=== PATIENT | female | born 1995 | race Caucasian/White ===

== ENCOUNTER 2021-06-20 20:39 | Emergency (ER) | payer OTHER, SELFPAY ==
[2021-06-20] VITALS (9 sets, daily range): BP systolic 97–123; BP diastolic 66–75; PULSE 74–93; RESP 12–22; TEMP 36.9; O2SAT 96–100; BMI 23.1
[2021-06-20 21:44] LABS: Hemoglobin 12.7 g/dL (12.0-16.0); Mean Corpuscular HGB Conc 33.4 % (30-36); Mean Corpuscular Hemoglobin 31.8 PG (26-34); Platelet Count 376 X10^3/uL (150-400); Red Cell Distribution Width 12.1 % (11.6-14.8); White Blood Cell Count 13.7 X10^3/uL (4.5-11.0)
[2021-06-20 21:47] LABS: Add Manual Diff / Slide Review YES
[2021-06-20 21:50] LABS: Alanine Aminotransferase 14 IU/L (<35); Albumin 4.2 g/dL (3.5-5.0); Albumin Globulin Ratio 1.3 (1.0-2.8); Alkaline Phosphatase 60 U/L (38-126); Aspartate Aminotransferase 18 IU/L (14-36); BUN Creatinine Ratio 13.4 (6-22); Bilirubin Total 0.6 mg/dL (0.2-1.3); Blood Urea Nitrogen 11 mg/dL (7-17); Calcium 9.7 mg/dL (8.4-10.2); Carbon Dioxide 30 mmol/L (22-32); Chloride 107 mmol/L (98-107); Creatine Kinase 31 U/L (30-135); Estimated Glomerular Filt Rate > 60.0 mL/min (>60); Globulin 3.3 g/dL (1.7-4.1); Glucose 102 mg/dL (70-100); HEMOLYSIS < 15 (0-50); Magnesium 2.2 mg/dL (1.6-2.3); Potassium 4.3 mmol/L (3.4-5.1); Sodium 143 mmol/L (137-145); Total Protein 7.5 g/dL (6.3-8.2)
[2021-06-20 22:00] LABS: Troponin I < 0.012 ng/mL (0.01-0.034)
[2021-06-20 22:21] LABS: Bacteria Urine Many (>30); RBC Urine 1-5/HPF (0-5/HPF); Squamous Epithelial Cell Urine >30 /HPF (0-5/HPF); WBC Urine 5-10/HPF (0-5/HPF)
[2021-06-20 22:22] LABS: Culture Indicated Urine Cult Not Indicated
[2021-06-20 22:35] LABS: Neutrophils Absolute Manual 7261 /uL (3000-5900); Total Cells Counted 100
[2021-06-20 22:36] LABS: RBC Morphology Normal Morphology
[2021-06-21] VITALS: PULSE 70; RESP 18; O2SAT 95
[2021-06-21 00:30] VITALS: PULSE 65; RESP 16; O2SAT 97
--- NOTE | 2021-06-21 00:59 | ED.ARRPALP ---
HPI - Arrhythmia/Palpitations General Chief Complaint: Arrhythmia/Palpitations Stated Complaint: chest palpitations all day Time Seen by Provider: 06/20/21 21:52 Source: patient Mode of arrival: Ambulatory Limitations: no limitations History of Present Illness HPI narrative: 26-year-old woman with no significant medical history presents with increasing palpitations today. She denies any excessive caffeine, energy drinks, stimulants or [id number] medications. She states she has been eating and drinking normally has not had excessive alcohol use and is not regularly using marijuana. When she gets palpitations she notes a fluttery feeling in her throat but no actual pain, diaphoresis or shortness of breath. She describes no recent headaches, fevers, cough, abdominal pain, diarrhea or constipation. Related Data Previous Rx's Medication Instructions Recorded propranolol 20 mg tablet 20 mg PO BID PRN #20 tab 06/21/21 Allergies Allergy/AdvReac Type Severity Reaction Status Date / Time No Known Drug Allergies Allergy Verified 06/20/21 20:56 Review of Systems Review of Systems Narrative: Pertinent positive and negative findings as per HPI Remainder of review of systems is otherwise unremarkable for Constitutional: Fevers, chills, weakness ENT: No sore throat, neck pain, ear pain CV: Chest pain, palpitations, Respiratory: Cough, wheeze, dyspnea GI: Nausea, vomiting, diarrhea, : Dysuria, hematuria, Patient History Social History Smoking Status: Current every day smoker Smoking Status: Current every day smoker tobacco type: vaping alcohol intake frequency: a few times a week Substance Use Type: does not use Exam Narrative Exam Narrative: General: Healthy appearing, in no acute distress. Able to give a complete and coherent history. Well-nourished well-developed HEENT: Moist mucous membranes, normal sclera with reactive pupils, Neck: No JVD, supple Respiratory: Lungs are clear to auscultation, no wheezing no rales no rhonchi. Full and symmetrical air movement Cardiac: Regular rate and rhythm no murmurs no bruits Abdomen: Soft, nontender, good bowel tones, no flank pain Skin: Warm and dry, no rashes Neurologic: Grossly neurologically intact with no obvious asymmetries or abnormalities Extremities: No trauma, well perfused Psych: Cooperative, appropriate insight and affect Initial Vital Signs Initial Vital Signs: Vital Signs Pulse Rate 93 H 06/20/21 20:55 Pulse Oximetry 100 06/20/21 20:55 Course Orders Ordered: ED Orders 06/20/21 21:17 EKG-12 Lead Stat 06/20/21 21:30 Complete Blood Count AUTO DIFF Stat Comprehensive Metabolic Panel Stat Magnesium Stat TSH w/ Reflex to FT4 Stat Troponin & CK Cardiac Panel Stat 06/20/21 21:45 Urine Microscopic Stat Discontinued Medications Propranolol HCl (Propranolol 10 Mg Tablet) 20 mg PO NOW ONE Stop: 06/21/21 01:10 Vital Signs Vital signs: Vital Signs - 8 hr 06/20/21 20:55 06/20/21 20:58 06/20/21 21:00 Temperature 98.5 F Pulse Rate 93 H 89 89 Respiratory Rate 18 Blood Pressure 123/75 Pulse Oximetry 100 100 96 06/20/21 21:30 06/20/21 21:33 06/20/21 22:00 Temperature Pulse Rate 80 80 81 Respiratory Rate 12 16 Blood Pressure 97/66 Pulse Oximetry 99 100 97 06/20/21 22:30 Temperature Pulse Rate 76 Respiratory Rate 18 Blood Pressure Pulse Oximetry 98 MDM - Arrhythmia/Palpitations Lab Data Result diagrams: 06/20/21 21:30 06/20/21 21:30 Labs: Lab Results 06/20/21 06/20/21 06/20/21 Range/Units 21:30 21:30 21:30 WBC 13.7 H (4.5-11.0) X10^3/uL RBC 4.00 (4.0-5.2) X10^6/uL Hgb 12.7 (12.0-16.0) g/dL Hct 38.0 (36-46) % MCV 95.0 (80-100) fL MCH 31.8 (26-34) PG MCHC 33.4 (30-36) % RDW 12.1 (11.6-14.8) % Plt Count 376 (150-400) X10^3/uL Neut % (Auto) Not Reportable Lymph % (Auto) Not Reportable [place] % (Auto) Not Reportable Eos % (Auto) Not Reportable Baso % (Auto) Not Reportable Lymph # (Auto) Not Reportable [place] # (Auto) Not Reportable Baso # (Auto) Not Reportable Total Counted 100 Seg Neutrophils % 51.0 (38-70) % Band Neutrophils % 2.0 L (3-7) % Lymphocytes % (Manual) 42.0 (25-45) % Monocytes % (Manual) 4.0 (2-11) % Eosinophils % (Manual) 1.0 L (2-4) % Neutrophils # (Manual) 7261 H (2241-0302) /uL RBC Morphology Normal morphology Sodium 143 (137-145) mmol/L Potassium 4.3 (3.4-5.1) mmol/L Chloride 107 (98-107) mmol/L Carbon Dioxide 30 (22-32) mmol/L BUN 11 (7-17) mg/dL Creatinine 0.82 (0.52-1.04) mg/dL Estimated GFR > 60.0 (>60) mL/min BUN/Creatinine Ratio 13.4 (6-22) Glucose 102 H (70-100) mg/dL Calcium 9.7 (8.4-10.2) mg/dL Magnesium 2.2 (1.6-2.3) mg/dL Total Bilirubin 0.6 (0.2-1.3) mg/dL AST 18 (14-36) IU/L ALT 14 (<35) IU/L Alkaline Phosphatase 60 (38-126) U/L Total Creatine Kinase 31 (30-135) U/L CK-MB (CK-2) TNP CK-MB (CK-2) Rel Index TNP Troponin I < 0.012 (0.01-0.034) ng/mL Total Protein 7.5 (6.3-8.2) g/dL Albumin 4.2 (3.5-5.0) g/dL Globulin 3.3 (1.7-4.1) g/dL Albumin/Globulin Ratio 1.3 (1.0-2.8) TSH 2.30 (0.47-4.68) uIU/mL Urine RBC (0-5/HPF) Urine WBC (0-5/HPF) Ur Squamous Epith Cells (0-5/HPF) Urine Bacteria (None) Ur Culture Indicated? Micro UA Comment 06/20/21 Range/Units 21:45 WBC (4.5-11.0) X10^3/uL RBC (4.0-5.2) X10^6/uL Hgb (12.0-16.0) g/dL Hct (36-46) % MCV (80-100) fL MCH (26-34) PG MCHC (30-36) % RDW (11.6-14.8) % Plt Count (150-400) X10^3/uL Neut % (Auto) Lymph % (Auto) [place] % (Auto) Eos % (Auto) Baso % (Auto) Lymph # (Auto) [place] # (Auto) Baso # (Auto) Total Counted Seg Neutrophils % (38-70) % Band Neutrophils % (3-7) % Lymphocytes % (Manual) (25-45) % Monocytes % (Manual) (2-11) % Eosinophils % (Manual) (2-4) % Neutrophils # (Manual) (7809-9208) /uL RBC Morphology Sodium (137-145) mmol/L Potassium (3.4-5.1) mmol/L Chloride (98-107) mmol/L Carbon Dioxide (22-32) mmol/L BUN (7-17) mg/dL Creatinine (0.52-1.04) mg/dL Estimated GFR (>60) mL/min BUN/Creatinine Ratio (6-22) Glucose (70-100) mg/dL Calcium (8.4-10.2) mg/dL Magnesium (1.6-2.3) mg/dL Total Bilirubin (0.2-1.3) mg/dL AST (14-36) IU/L ALT (<35) IU/L Alkaline Phosphatase (38-126) U/L Total Creatine Kinase (30-135) U/L CK-MB (CK-2) CK-MB (CK-2) Rel Index Troponin I (0.01-0.034) ng/mL Total Protein (6.3-8.2) g/dL Albumin (3.5-5.0) g/dL Globulin (1.7-4.1) g/dL Albumin/Globulin Ratio (1.0-2.8) TSH (0.47-4.68) uIU/mL Urine RBC 1-5/hpf (0-5/HPF) Urine WBC 5-10/hpf H (0-5/HPF) Ur Squamous Epith Cells >30 /hpf H (0-5/HPF) Urine Bacteria Many (>30) H (None) Ur Culture Indicated? Cult not indicated Micro UA Comment * Point of Care Testing Test Results Negative Urine Dip Bedside Urine Glucose Negative Bedside Urine Bilirubin - Negative Bedside Urine Ketone - Negative Urine Specific [place] 1.030 Bedside Urine Occult Blood + Bedside Urine pH 6.0 Bedside Urine Protein - Negative Bedside Urine Urobilinogen - Negative Bedside Urine Nitrite - Negative Bedside Urine Leukocytes - Negative Esterase MDM Narrative Medical decision making narrative: Otherwise healthy 26-year-old woman with palpitations. Telemetry reveals PACs sometimes as frequently as bigeminy with PACs. Remainder of exam and workup is otherwise unremarkable. No evidence of acute coronary syndrome, electrolyte abnormalities or thyroid abnormalities. She was given a dose of 20 mg of oral propranolol with resolution of symptoms and would like to try this on a as needed basis as an outpatient. She is safe for home discharge Discharge Plan Departure Patient Disposition: Home Clinical Impression: PAC (premature atrial contraction) Instructions: Premature Ventricular Beats Activity Restrictions/Additional Instructions: Thank you for coming in today You are having an occasional early beat. We called these premature atrial contractions. These cause the ?weird fluttery? feeling in her chest and seem ?wrong?. They are not a sign of anything bad or scary. They are not a precursor to a heart attack, your heart is not going to stop, you are not going to go into an irregular rhythm that is going to cause any life-threatening problems. You can use propranolol 20 mg up to 2 times a day if needed if you are having so many irregular beats that you are having trouble ignoring them. Your workup today was very reassuring, your electrolytes, kidney function, liver function, thyroid and EKG were all nice and normal. Please follow-up with your primary care doctor I hope you feel better Prescriptions: New propranolol 20 mg tablet 20 mg PO BID PRN (Reason: palpitationsl) Qty: 20 RF: 0
[2021-06-21 01:00] VITALS: PULSE 73; O2SAT 96
[2021-06-21 01:40] VITALS: BP 95/59; PULSE 81; RESP 15; TEMP 36.6; O2SAT 100
[2021-06-21] MEDS: PROPRANOLOL 10 MG TABLET 20 MG PO (01:51)
== END 2021-06-21 01:55 | disposition home or self-care (01) ==
PROVIDERS: Emergency Provider Emergency Medicine
DX: I49.1 Atrial premature depolarization (principal)
CPT/HCPCS: 36415; 80053; 81003; 81015; 81025; 82550; 83735; 84443; 84484; 85007; 85025; 93005; 99283; 99284

== ENCOUNTER 2021-12-04 09:49 | Emergency (ER) | payer OTHER, SELFPAY ==
[2021-12-04 10:14] VITALS: BP 160/72; PULSE 99; RESP 18; TEMP 36.4; O2SAT 99; BMI 24.3
--- NOTE | 2021-12-04 10:30 | ED.HA ---
HPI - Headache General Chief Complaint: Headache Stated Complaint: migraine 8 days/neck and lower back pain Time Seen by Provider: 12/04/21 10:28 Mode of arrival: Ambulatory History of Present Illness HPI Narrative: Patient is a 26-year-old female without history presenting today with headache and left-sided neck pain ongoing for the last 8 days. He says it definitely hurts more when she tries to turn her head to the left. He has been taking Tylenol and ibuprofen without any relief. She occasionally feels nauseated. She is sensitive to light and noise. She has no prior history of migraines and this is just not going away. She has no numbness tingling or weakness. No chest pain. No fever his. Related Data Previous Rx's Medication Instructions Recorded propranolol 20 mg tablet 20 mg PO BID PRN #20 tab 06/21/21 cyclobenzaprine 5 mg tablet 5 mg PO TID PRN #10 tab 12/04/21 Allergies Allergy/AdvReac Type Severity Reaction Status Date / Time No Known Drug Allergies Allergy Verified 06/20/21 20:56 Review of Systems Review of Systems Narrative: GENERAL: Denies chills, fatigue, malaise, fever, sweats, travel HEENT: Denies sinus pain, ear pain, sore throat, difficulty swallowing, neck pain RESPIRATORY: Denies dyspnea, cough, wheezing, hemoptysis, sputum. CARDIOVASCULAR: Denies chest pain, palpitations, orthopnea, edema GASTROINTESTINAL: Denies nausea, vomiting, abdominal pain, diarrhea, constipation, melena. : Denies dysuria, frequency, incontinence, hematuria, urinary retention, flank pain. MUSCULOSKELETAL: Neck pain, see HPI SKIN: No rash, no erythema, no pruritus NEUROLOGIC: + headache,see HPI PSYCHIATRIC: No concerning psychosocial issues. 12 point review of systems is negative except for those stated above and HPI Patient History Social History Smoking Status: Former smoker Smoking Status: Former smoker tobacco type: vaping alcohol intake frequency: a few times a week Substance Use Type: does not use Exam Initial Vital Signs Initial Vital Signs: Vital Signs Temperature 97.6 F 12/04/21 10:14 Pulse Rate 99 H 12/04/21 10:14 Respiratory Rate 18 12/04/21 10:14 Blood Pressure 160/72 H 12/04/21 10:14 Pulse Oximetry 99 03/11/22 10:14 GENERAL: Well-appearing, well-nourished and in no acute distress. HEENT: Head atraumatic,EOMI, pupils reactive, face symmetric, moist mucous membranes NECK: Slightly tender to palpation on left sternocleidomastoid. Negative meningeal signs CARDIOVASCULAR: Regular rate and rhythm without murmurs, rubs or gallops. RESPIRATORY: Breath sounds equal bilaterally, no wheezes rales or rhonchi. ABDOMEN: Soft, nontender. Normoactive bowel sounds all 4 quadrants. No guarding or rebound. EXTREMITIES: Normal range of motion, no clubbing or edema. Neurovascularly intact NEUROLOGICAL: Alert and oriented x4.Normal gait and speech. Cranial nerves II through XII grossly intact. Good [id number], good [id number], strength equal bilaterally, no dysarthria or aphasia, sensation in tact to soft touch bilaterally, no visual changes, no facial droop SKIN: Warm, dry, no laceration, no petechiae, no rashes or lesions. Course Orders Ordered: ED Orders 12/04/21 11:12 Test Urine Stat Urine Culture Stat Urine Microscopic Stat 12/04/21 11:16 CT head/brain wo con Stat Discontinued Medications Sodium Chloride (Normal Saline 0.9%) 1,000 mls @ 1,000 mls/hr IV BOLUS ONE Stop: 12/04/21 11:44 Last Infusion: 12/04/21 13:12 Dose: 0 mls/hr Documented by: Admin: 12/04/21 11:35 Dose: 1,000 mls/hr Documented by: GABRIELLE Ketorolac Tromethamine (Ketorolac 30 Mg/Ml Vial) 30 mg IV NOW ONE Stop: 12/04/21 10:46 Last Admin: 12/04/21 11:35 Dose: 30 mg Documented by: GABRIELLE Morphine Sulfate (Morphine 2 Mg/Ml Inj) 2 mg IV NOW ONE Stop: 12/04/21 12:25 Last Admin: 12/04/21 13:13 Dose: 2 mg Documented by: CANDELARIO Ondansetron HCl (Ondansetron 4 Mg/2 Ml Inj) 4 mg IV NOW ONE Stop: 12/04/21 10:46 Last Admin: 12/04/21 11:35 Dose: 4 mg Documented by: GABRIELLE Vital Signs Vital signs: Vital Signs - 8 hr 12/04/21 14:00 Pulse Rate 80 Respiratory Rate 18 Blood Pressure 145/70 H Pulse Oximetry 97 MDM - Headache Lab Data Labs: Lab Results 12/04/21 12/04/21 Range/Units 11:12 11:12 Urine RBC None seen (0-5/HPF) Urine WBC 0-1/hpf (0-5/HPF) Ur Squamous Epith Cells 0-1 /hpf D (0-5/HPF) Urine Bacteria Few (2-10) H (None) Ur Culture Indicated? Specimen cultured Urine Test Negative (Negative) Urine Dip Bedside Urine Glucose 100 mg/dl Bedside Urine Bilirubin - Negative Bedside Urine Ketone - Negative Urine Specific [place] 1.015 Bedside Urine Occult Blood - Negative Bedside Urine pH 6 Bedside Urine Protein - Negative Bedside Urine Urobilinogen - Negative Bedside Urine Nitrite - Negative Bedside Urine Leukocytes ++ [address] scan - head: Radiologist's Impression: PROCEDURE:? CT HEAD/BRAIN WO CON ? INDICATIONS:? new onset headache x 8 days ? TECHNIQUE:? Noncontrast 4.5 mm thick angled axial sections acquired from the foramen magnum to the vertex, with coronal and sagittal reformats.? For radiation dose reduction, the following was used:? automated exposure control, adjustment of mA and/or kV according to patient size.? ? COMPARISON:? None. ? FINDINGS:? Image quality:? Excellent.? ? CSF spaces:? Basal cisterns are patent.? No extra-axial fluid collections.? Ventricles are normal in size and shape.? ? Brain:? No midline shift.? No intracranial masses or hemorrhage.? Rene-white matter interface is normal.? ? Skull and face:? Calvarium and visualized facial bones are intact, without suspicious lesions.? ? Sinuses:? Visualized sinuses and mastoids are clear.? ? IMPRESSION:? No CT evidence of acute intracranial abnormalities. ? ? Dictated by: Kiran Centeno M.D. on 12/04/2021 at 11:37 ? ? [facility] Narrative Medical decision making narrative: The patient overall appears well. She was initially given Toradol and fluids for her headache she did not have a ride home is. Head CT is negative she requested something else for pain she is given morphine which does seem to help. She definitely has some neck muscle spasm which is probably contributing to her headache. Discharge Plan Departure Patient Disposition: Home Clinical Impression: Headache Instructions: DI for Headache Activity Restrictions/Additional Instructions: *You have been diagnosed with headache and muscle spasm *What to do: At this time you have ongoing headache. Head CT is negative. Please rest and drink fluids. Also recommend using a heating pad and light stretches for your neck. *Continue to take medications as directed Flexeril 5 mg every 8 hours if needed for muscle spasm Ibuprofen 100 mg every 8 hours if needed for [id number] pain *Follow up with your primary care provider in 2-3 days or call [phone] *Return to ER if you should have increasing pain, numbness tingling weakness or any new, worsening or concerning symptoms Prescriptions: New cyclobenzaprine 5 mg tablet 5 mg PO TID PRN (Reason: muscle spasm) Qty: 10 0RF No Action propranolol 20 mg tablet 20 mg PO BID PRN (Reason: palpitationsl) Qty: 20 0RF Referrals: [facility] [Provider Group]
--- NOTE | 2021-12-04 11:16 | DI.CT.S_ITS ---
PROCEDURE: CT HEAD/BRAIN WO CON INDICATIONS: new onset headache x 8 days TECHNIQUE: Noncontrast 4.5 mm thick angled axial sections acquired from the foramen magnum to the vertex, with coronal and sagittal reformats. For radiation dose reduction, the following was used: automated exposure control, adjustment of mA and/or kV according to patient size. COMPARISON: None. FINDINGS: Image quality: Excellent. CSF spaces: Basal cisterns are patent. No extra-axial fluid collections. Ventricles are normal in size and shape. Brain: No midline shift. No intracranial masses or hemorrhage. Rene-white matter interface is normal. Skull and face: Calvarium and visualized facial bones are intact, without suspicious lesions. Sinuses: Visualized sinuses and mastoids are clear. IMPRESSION: No CT evidence of acute intracranial abnormalities. Dictated by: Kiran Centeno M.D. on 12/04/2021 at 11:37 Approved by: Kiran Centeno M.D. on 12/04/2021 at 11:38
[2021-12-04 11:26] LABS: Pregnancy Test Urine Negative (Negative)
[2021-12-04 11:32] LABS: RBC Urine None Seen (0-5/HPF); Squamous Epithelial Cell Urine 0-1 /HPF (0-5/HPF); WBC Urine 0-1/HPF (0-5/HPF)
[2021-12-04 11:33] LABS: Bacteria Urine Few (2-10); Culture Indicated Urine Specimen Cultured
[2021-12-04] MEDS: ONDANSETRON 4 MG/2 ML INJ IV (11:35)
[2021-12-04] MEDS: KETOROLAC 30 MG/ML VIAL IV (11:35)
[2021-12-04] MEDS: SODIUM CHLORIDE 0.9% 1,000 ML 1000 ML IV (11:35)
[2021-12-04] MEDS: MORPHINE 2 MG/ML INJ IV (13:13)
[2021-12-04 14:00] VITALS: BP 145/70; PULSE 80; RESP 18; O2SAT 97
== END 2021-12-04 14:15 | disposition home or self-care (01) ==
PROVIDERS: Emergency Provider Emergency Medicine
DX: R51.9 Headache, unspecified (principal); Z87.891 Personal history of nicotine dependence
CPT/HCPCS: 36415; 70450; 81003; 81015; 81025; 87086; 96361; 96374; 96375; 99284; J1885; J2270; J2405

== ENCOUNTER 2022-04-28 10:20 | Emergency (ER) | payer OTHER, SELFPAY ==
[2022-04-28 10:37] VITALS: BP 116/63; PULSE 91
--- NOTE | 2022-04-28 10:38 | DI.RAD.S_ITS ---
PROCEDURE: XR FOOT RT MIN 3V INDICATIONS: injury TECHNIQUE: 3 views of the foot were acquired. COMPARISON: None. FINDINGS: Bones: No fractures or dislocations. No suspicious bony lesions. Soft tissues: No tibiotalar joint effusion. Achilles tendon appears normal. IMPRESSION: No fracture. No osseous lesion. If symptoms and/or clinical suspicion for pathology persists, further assessment with repeat radiographs (7-10 days) or advanced imaging (e.g. CT, MRI or bone scan) should be considered. Dictated by: Manjula Gonzalez MD, PhD on 04/28/2022 at 11:02 Approved by: Manjula Gonzalez MD, PhD on 04/28/2022 at 11:03
--- NOTE | 2022-04-28 10:38 | DI.RAD.S_ITS ---
PROCEDURE: XR ANKLE RT MIN 3V INDICATIONS: injury TECHNIQUE: 3 views of the ankle were acquired. COMPARISON: None. FINDINGS: Bones: No fractures or dislocations. Ankle mortise is normally aligned. No suspicious bony lesions. Soft tissues: No tibiotalar joint effusion. Achilles tendon appears normal. IMPRESSION: No fracture. No osseous lesion. If symptoms and/or clinical suspicion for pathology persists, further assessment with repeat radiographs (7-10 days) or advanced imaging (e.g. CT, MRI or bone scan) should be considered. Dictated by: Manjula Gonzalez MD, PhD on 04/28/2022 at 11:04 Approved by: Manjula Gonzalez MD, PhD on 04/28/2022 at 11:04
[2022-04-28 10:39] VITALS: BP 116/63; PULSE 91; RESP 17; TEMP 36.4; O2SAT 97
--- NOTE | 2022-04-28 11:37 | ED.LOWEXIN ---
HPI - Extremity Injury (Lower) General Chief Complaint: Extremity Injury, Lower Stated Complaint: Sprained ankle not getting better Time Seen by Provider: 04/28/22 11:30 Source: patient Mode of arrival: Family Vehicle History of Present Illness HPI Narrative: Patient is with the . She injured her right ankle 5 days ago on Tuesday. She states her ankle rolled. No previous injury. [facility] and given Aircast splint and crutches. Pain is not improving. She is on her feet at work continuously. Continues to work. Skin intact. No numbness tingling or weakness. Related Data Previous Rx's Medication Instructions Recorded propranolol 20 mg tablet 20 mg PO BID PRN palpitationsl #20 06/21/21 tabs cyclobenzaprine 5 mg tablet 5 mg PO TID PRN muscle spasm #10 12/04/21 tabs Allergies Allergy/AdvReac Type Severity Reaction Status Date / Time No Known Drug Allergies Allergy Verified 06/20/21 20:56 Review of Systems Review of Systems Narrative: GENERAL: Denies chills, fatigue, malaise, fever, sweats. HEENT: Denies sinus pain, ear pain, sore throat RESPIRATORY: Denies dyspnea, cough CARDIOVASCULAR: Denies chest pain, palpitations GASTROINTESTINAL: Denies nausea, vomiting, abdominal pain : Denies dysuria, frequency, hematuria MUSCULOSKELETAL: Positive muscle or bony pain SKIN: Denies rash, skin lesions NEUROLOGIC: Denies weakness, numbness ROS Unobtainable: All systems reviewed & are unremarkable except as noted in HPI and below Patient History Social History Smoking Status: Former smoker Smoking Status: Former smoker tobacco type: vaping alcohol intake frequency: a few times a week Substance Use Type: does not use Exam Narrative Exam Narrative: GENERAL: in no distress, not toxic not dyspneic HEAD: Normocephalic. EYES: Pupils equal round No scleral icterus. EXTREMITIES: No gross deformities. Right foot and ankle exposed. Nontender proximal leg and fibula and tibia. Nontender knee. There is bruising ecchymosis to the lateral malleolus. Tender to touch as well. No gross deformity. Able to flex and extend at the ankle. Foot warm soft and pink with strong pedal pulse and brisk cap refills. Patient was self ambulatory in hallway from waiting room to her room with mild/moderate antalgic gait but no footdrop. NEURO: AOx4. SKIN: Warm and dry PSYCH: Not anxious, is cooperative Initial Vital Signs Initial Vital Signs: Vital Signs Pulse Rate 91 H 04/28/22 10:37 Blood Pressure 116/63 04/28/22 10:37 Course Course Course Narrative: No new issues during course of stay Orders Ordered: ED Orders 04/28/22 10:38 XR ankle RT min 3V Stat XR foot RT min 3V Stat Reevaluation(s) Reevaluation #1: Reviewed imaging with patient. Patient likely not improving because she is continues to stand and bear weight at work since the injury. Recommended no weight-bearing/off work because there is no desk duty available for her. Return precautions reviewed with her. Time: 11:43 Vital Signs Vital signs: Vital Signs - 8 hr 04/28/22 10:39 04/28/22 10:37 04/28/22 10:37 Temperature 97.5 F L Pulse Rate 91 H 91 H Respiratory Rate 17 Blood Pressure 116/63 116/63 Pulse Oximetry 97 Oxygen Delivery Method Room Air MDM - Extremity Injury (Lower) Differential Diagnosis Differential diagnosis: Likely ankle sprain and strain and ankle fracture Imaging Data Extremity x-ray #1: Radiologist's Impression: [address] [address] XRay Report Signed Patient: Neda Huggins MR#: [id number] : 1995 Acct:[id number] Age/Sex: 27 / F Date of Service: 04/28/22 Loc: Accession Number: [id number] ?? Procedure: XR foot RT min 3V Ordering Provider: Derik Man MD PROCEDURE:? XR FOOT RT MIN 3V ? INDICATIONS:? injury ? TECHNIQUE:? 3 views of the foot were acquired.? ? COMPARISON:? None. ? FINDINGS:? ? Bones:? No fractures or dislocations.? No suspicious bony lesions.? ? Soft tissues:? No tibiotalar joint effusion.? Achilles tendon appears normal.? ? ? IMPRESSION:? No fracture. No osseous lesion. If symptoms and/or clinical suspicion for pathology persists, further assessment with repeat radiographs (7-10 days) or advanced imaging (e.g. CT, MRI or bone scan) should be considered. ? ? Dictated by: Manjula Gonzalez MD, PhD on 04/28/2022 at 11:02 ? ? Approved by: Manjula Gonzalez MD, PhD on 04/28/2022 at 11:03 ? Extremity x-ray #2: Radiologist's Impression: [address] [address] XRay Report Signed Patient: Neda Huggins MR#: [id number] : 1995 Acct:[id number] Age/Sex: 27 / F Date of Service: 04/28/22 Loc: ED Accession Number: [id number] ?? Procedure: XR ankle RT min 3V Ordering Provider: Derik Man MD PROCEDURE:? XR ANKLE RT MIN 3V ? INDICATIONS:? injury ? TECHNIQUE:? 3 views of the ankle were acquired.? ? COMPARISON:? None. ? FINDINGS:? ? Bones:? No fractures or dislocations.? Ankle mortise is normally aligned.? No suspicious bony lesions.? ? Soft tissues:? No tibiotalar joint effusion.? Achilles tendon appears normal.? ? ? IMPRESSION:? No fracture. No osseous lesion. If symptoms and/or clinical suspicion for pathology persists, further assessment with repeat radiographs (7-10 days) or advanced imaging (e.g. CT, MRI or bone scan) should be considered. ? Dictated by: Manjula Gonzalez MD, PhD on 04/28/2022 at 11:04 ? ? Approved by: Manjula Gonzalez MD, PhD on 04/28/2022 at 11:04 ? MDM Narrative Medical decision making narrative: Appropriate for discharge home. Exam and imaging otherwise reassuring. Patient continued to weight bear at work and likely slow healing process. Recommend time off work. Work note provided. Return precautions reviewed with her. She does already have Aircast ankle splint and crutches at home. Pain control at time of discharge. Orthopedic referral given as well. Discharge Plan Departure Patient Disposition: Home Clinical Impression: Ankle sprain and strain Instructions: DI for Ankle Sprain Activity Restrictions/Additional Instructions: Please continue using your Aircast ankle splint and crutches when up and walking. Continue ice pack to the ankle 20 minutes at a time as needed for pain and swelling. Continue elevating the ankle when you are going the ankle. May use [id number] ibuprofen or Tylenol for pain. Return if worsening questions or concerns or not improving in 10 days. May need repeat x-ray of your foot/ankle. Call provided orthopedic office as well today for office recheck in a week. Prescriptions: No Action propranolol 20 mg tablet 20 mg PO BID PRN (Reason: palpitationsl) Qty: 20 0RF cyclobenzaprine 5 mg tablet 5 mg PO TID PRN (Reason: muscle spasm) Qty: 10 0RF Referrals: Debi Carter MD [Physician] - Stand Alone Forms: Work Release Note Visit Report Forms: Patient Portal/API
== END 2022-04-28 11:45 | disposition home or self-care (01) ==
PROVIDERS: Emergency Provider Emergency Medicine
DX: S93.401A Sprain of unspecified ligament of right ankle, initial encounter (principal); S96.911A Strain of unspecified muscle and tendon at ankle and foot level, right foot, initial encounter; W19.XXXA Unspecified fall, initial encounter
CPT/HCPCS: 73610; 73630; 99281; 99283

== ENCOUNTER 2022-06-09 10:24 | Emergency (ER) | payer OTHER, SELFPAY ==
[2022-06-09 10:31] VITALS: BP 100/63; PULSE 84; RESP 18; TEMP 36.7; O2SAT 99
--- NOTE | 2022-06-09 10:36 | DI.RAD.S_ITS ---
PROCEDURE: XR CHEST 2V INDICATIONS: cough x 5 days, coughing up blood TECHNIQUE: 2 views of the chest were acquired. COMPARISON: None. FINDINGS: Surgical changes and devices: None. Lungs and pleura: Small Passy in the medial right base. No pleural effusion or pneumothorax. Mediastinum: Mediastinal contours are normal. Heart size is normal. Bones and chest wall: No suspicious bony abnormalities. Soft tissues appear unremarkable. IMPRESSION: Suspected small infectious or inflammatory opacity in the medial right base. Consider imaging surveillance for follow-up. Dictated by: Pablo Wade M.D. on 06/09/2022 at 10:55 Approved by: Pablo Wade M.D. on 06/09/2022 at 10:58
[2022-06-09 10:55] LABS: COVID19 -Nasal RAPID Negative (Negative)
[2022-06-09 13:00] VITALS: BP 108/72; PULSE 78; RESP 14; O2SAT 99
[2022-06-09] MEDS: KETOROLAC 10 MG TABLET PO (13:07)
[2022-06-09] MEDS: AMOXICILLIN 250 MG CAPSULE 500 MG PO ×2 (13:07)
--- NOTE | 2022-06-09 13:38 | ED_ITS ---
HPI - URI/Sore Throat <SALDE Moy - Last Filed: 06/09/22 13:45> General Chief Complaint: Upper Respiratory Symptoms Stated Complaint: Congestion, on off fever, coughing blood x 6 days Time Seen by Provider: 06/09/22 12:09 Source: patient Mode of arrival: Ambulatory History of Present Illness HPI Narrative: This is a 27-year-old female presents to the emergency department with 6 days of fever, congestion, feeling poorly and having a sore throat. She states she went to the [facility] and had a strep test and throat culture completed 2 days ago which were not positive as far she knows for strep throat. She states she has only gotten worse since done. She denies any recent travel, states some of her sputum has had small streaks of blood in it but she thinks it is from her throat. She is not a smoker, denies any sinus tenderness, recent never work, or neck pain. She denies any shortness of breath or wheezing. Denies any prior lung conditions and denies any allergies. Related Data Home Medications Medication Instructions Recorded Confirmed escitalopram oxalate 10 mg tablet 10 mg PO QAM 06/09/22 06/09/22 Previous Rx's Medication Instructions Recorded amoxicillin 500 mg capsule 1,000 mg PO TID pneumonia 5 days 06/09/22 #30 caps benzocaine 15 mg-menthol 2.6 mg 1 lance mucous membrane Q2-4H PRN 06/09/22 lozenges (Cepacol Sore Throat sore throat #16 ea (benzocaine-menthol)) benzonatate 100 mg capsule 100 mg PO TID PRN cough #20 caps 06/09/22 cetirizine 10 mg tablet 10 mg PO BEDTIME 2 weeks #14 tabs 06/09/22 doxycycline hyclate 100 mg tablet 100 mg PO BID 5 days #10 tabs 06/09/22 Allergies Allergy/AdvReac Type Severity Reaction Status Date / Time No Known Drug Allergies Allergy Verified 06/09/22 10:35 Review of Systems <SLADE oMy - Last Filed: 06/09/22 13:45> Review of Systems Narrative: Review of systems is negative for acute abnormalities unless otherwise noted in HPI Patient History <SLADE Moy - Last Filed: 06/09/22 13:45> Social History Smoking Status: Former smoker Smoking Status: Former smoker tobacco type: vaping alcohol intake frequency: a few times a week Substance Use Type: does not use Exam <SLADE Moy - Last Filed: 06/09/22 13:45> Narrative Exam Narrative: Reviewed vitals signs and nursing notes. General: cooperative, comfortable, in no acute distress, well groomed HEENT: symmetrical facial expressions, moist mucous membranes, posterior pharynx is erythematous, tonsillar adenopathy without exudate, cobblestoning of posterior pharynx, uvula is midline, without sinus tenderness Cardiovascular: regular rate and rhythm, no peripheral edema, warm extremities Respiratory: normal effort, able to speak in complete sentences, without wheezi ng, stridor, right middle lobe with diminished breath sounds, no crackles or rales, no diminished sounds in bases. No retractions, hypoxia or tachypnea. GI: abdomen soft, nontender to palpation, nondistended, without masses, rebound tenderness or exquisite tenderness with exam. MSK: moves all extremities, neurovascularly intact, no weakness, normal tone Skin: brisk capillary refill, without pallor or erythema Neuro: normal speech and cognition, A&O x3, ambulatory, clear speech Psych: mental status is grossly normal, congruent mood, normal affect, pleasant and cooperative Initial Vital Signs Initial Vital Signs: Vital Signs Temperature 98.0 F 06/09/22 10:31 Pulse Rate 84 06/09/22 10:31 Respiratory Rate 18 06/09/22 10:31 Blood Pressure 100/63 06/09/22 10:31 Pulse Oximetry 99 06/09/22 10:31 Oxygen Delivery Method 06/09/22 10:31 <Perlita Stoddard DO - Last Filed: 06/10/22 08:03> Initial Vital Signs Initial Vital Signs: Vital Signs Temperature 98.0 F 06/09/22 10:31 Pulse Rate 84 06/09/22 10:31 Respiratory Rate 18 06/09/22 10:31 Blood Pressure 100/63 06/09/22 10:31 Pulse Oximetry 99 06/09/22 10:31 Oxygen Delivery Method 06/09/22 10:31 Course <SLADE Moy - Last Filed: 06/09/22 13:45> Orders Ordered: Discontinued Medications Amoxicillin (Amoxicillin 250 Mg Capsule) 500 mg PO NOW ONE Stop: 06/09/22 13:01 Last Admin: 06/09/22 13:07 Dose: 500 mg Documented By: STANLEY Amoxicillin (Amoxicillin 250 Mg Capsule) 500 mg PO NOW ONE Stop: 06/09/22 13:03 Last Admin: 06/09/22 13:07 Dose: 500 mg Documented By: STANLEY Doxycycline Hyclate (Doxycycline Hyclate 100 Mg Tablet) 100 mg PO NOW ONE Stop: 06/09/22 12:46 Last Admin: 06/09/22 13:01 Dose: Not Given Documented By: STANLEY Ketorolac Tromethamine (Ketorolac 10 Mg Tablet) 10 mg PO NOW ONE Stop: 06/09/22 12:46 Last Admin: 06/09/22 13:07 Dose: 10 mg Documented By: STANLEY Vital Signs Vital signs: Vital Signs - 8 hr 06/09/22 10:31 06/09/22 13:00 Temperature 98.0 F Pulse Rate 84 78 Respiratory Rate 18 14 Blood Pressure 100/63 108/72 Pulse Oximetry 99 99 Oxygen Delivery Method Room Air Room Air <Perlita Stoddard DO - Last Filed: 06/10/22 08:03> Orders Ordered: Discontinued Medications Amoxicillin (Amoxicillin 250 Mg Capsule) 500 mg PO NOW ONE Stop: 06/09/22 13:01 Last Admin: 06/09/22 13:07 Dose: 500 mg Documented By: STANLEY Amoxicillin (Amoxicillin 250 Mg Capsule) 500 mg PO NOW ONE Stop: 06/09/22 13:03 Last Admin: 06/09/22 13:07 Dose: 500 mg Documented By: STANLEY Doxycycline Hyclate (Doxycycline Hyclate 100 Mg Tablet) 100 mg PO NOW ONE Stop: 06/09/22 12:46 Last Admin: 06/09/22 13:01 Dose: Not Given Documented By: STANLEY Ketorolac Tromethamine (Ketorolac 10 Mg Tablet) 10 mg PO NOW ONE Stop: 06/09/22 12:46 Last Admin: 06/09/22 13:07 Dose: 10 mg Documented By: STANLEY Vital Signs Vital signs: Vital Signs - 8 hr 06/09/22 10:31 06/09/22 13:00 Temperature 98.0 F Pulse Rate 84 78 Respiratory Rate 18 14 Blood Pressure 100/63 108/72 Pulse Oximetry 99 99 Oxygen Delivery Method Room Air Room Air MDM - URI/Sore Throat <Delicia Sequeira [facility] - Last Filed: 06/09/22 13:45> Lab Data Labs: Lab Results 06/09/22 Range/Units 10:37 SARS-CoV-2 (PCR) Negative (Negative) Imaging Data Chest x-ray: Radiologist's Impression: PROCEDURE:? XR CHEST 2V ? INDICATIONS:? cough x 5 days, coughing up blood ? TECHNIQUE:? 2 views of the chest were acquired.? ? COMPARISON:? None. ? FINDINGS:? ? Surgical changes and devices:? None.? ? Lungs and pleura:? Small Passy in the medial right base.? No pleural effusion or pneumothorax. ? Mediastinum:? Mediastinal contours are normal.? Heart size is normal.? ? Bones and chest wall:? No suspicious bony abnormalities.? Soft tissues appear unremarkable.? ? IMPRESSION:? Suspected small infectious or inflammatory opacity in the medial right base. ?Consider imaging surveillance for follow-up.? ? ? Dictated by: Pablo Wade M.D. on 06/09/2022 at 10:55 ? ? Approved by: Pablo Wade M.D. on 06/09/2022 at 10:58 ? [facility] Narrative Medical decision making narrative: This is a 27-year-old female who presents to the emergency department with 6 days of productive cough and feeling poorly. Her chest x-ray shows a small infectious or inflammatory opacity in the right medial base. Patient denies any recent aspiration, travel, history of TB, or other lung condition. She denies any wheezing or shortness of breath, breath sounds were clear throughout and diminished in the right middle lobe. Her posterior pharynx is erythematous, she complained of a sore throat and states it was negative for strep throat 2 days ago but endorses that it has only gotten worse. Patient denies any allergies to medications, she was treated with amoxicillin for an pneumonia and encouraged to follow-up with [facility] prior to returning to work. She was also given throat lozenges, cetirizine, and Tessalon Perles. She was given an incentive s pirometer and taught how to use it. Patient understands to return to the emergency department for any worsening, today she had normal vital signs, was without any toxic signs of distress hand without hypoxia, wheezing, fever or chills. She was given 3 days off of work and encouraged to use Tylenol and ibuprofen as needed for fever. Patient is appropriate and amenable to discharge home. Vital signs are stable on repeat examination is unremarkable. Patient has been informed of results. Patient has been given strict return to ER precautions for any new or worsening symptoms. Patient understands to follow up closely with outpatient providers as instructed. Patient understands plan and agrees to discharge home. All questions and concerns answered at this time. <Perlita Stoddard, - Last Filed: 06/10/22 08:03> Lab Data Labs: Lab Results 06/09/22 Range/Units 10:37 SARS-CoV-2 (PCR) Negative (Negative) Discharge Plan Departure Patient Disposition: Home Clinical Impression: Pneumonia Qualifiers: Pneumonia type: due to unspecified organism Laterality: right Lung location: middle lobe of lung Qualified Code(s): J18.9 - Pneumonia, unspecified organism Instructions: Pneumonia-Adult Activity Restrictions/Additional Instructions: *You have been diagnosed with community-acquired pneumonia. Please start the antibiotic today and continue therapy for the next 5 days, takes Zyrtec each night and use your incentive spirometer throughout the day to help prevent worsening bacterial infection. Please come back to the hospital if you feel short of breath, started wheezing, have a fever and chills or other complication. Please check in with [employer] prior to returning to work as able. I hope you feel better soon *What to do: *Please continue to take your regular medications as directed. [x ] New medication prescriptions sent to your pharmacy: [[facility]inda ] [ ] New medication written as a paper prescription [ ] No new medications given *Please follow up with your primary care provider in 2-3 days, call for an appointment. Let them know you were seen in the Emergency Department and that we asked that you be seen for follow-up. We will electronically transmit a record of today's note if your PCP is in our system *If you do not have a primary care provider please contact [phone] to establish care with one of the [facility] primary care providers. *Return to Emergency Department if you should have any new, worsening, or concerning symptoms, such as [fever greater than 101F, chills, worsening pain, persistent vomiting or other bothersome symptoms]. Prescriptions: New doxycycline hyclate 100 mg tablet 100 mg PO BID 5 Days Qty: 10 0RF cetirizine 10 mg tablet 10 mg PO BEDTIME 14 Days Qty: 14 0RF benzonatate 100 mg capsule 100 mg PO TID PRN (Reason: cough) Qty: 20 0RF amoxicillin 500 mg capsule 1,000 mg PO TID 5 Days Qty: 30 0RF Cepacol Sore Throat (sadie-men) 15-2.6 mg lozenge 1 lance mucous membrane Q2-4H PRN (Reason: sore throat) Qty: 16 0RF No Action escitalopram oxalate 10 mg tablet 10 mg PO QAM Referrals: ProviderCrissy [Primary Care Provider] - Stand Alone Forms: Work Release Note Visit Report Forms: Patient Portal/API <Perlita Stoddard DO - Last Filed: 06/10/22 08:03> Cosign ED Attending Julianna Attestation: I was immediately available in the department for consultation. Documentation has been reviewed. I agree with assessment and plan.
== END 2022-06-09 13:20 | disposition home or self-care (01) ==
PROVIDERS: Emergency Medicine; Emergency Provider Nurse Practitioner Critical Care Medicine
DX: J18.9 Pneumonia, unspecified organism (principal); Z20.822 Contact with and (suspected) exposure to COVID-19
CPT/HCPCS: 71046; 87635; 99283; C9803